=== PATIENT | female | born 1980 | race Caucasian/White ===

== ENCOUNTER 2017-10-20 18:27 | Emergency (ER) | payer BC ==
[~2017-10-20] VITALS: Ht 170.2 cm; Wt 80.4 kg
[2017-10-20] MEDS ORDERED: TETanus/Pertussis (Acell)/Diphther VAC/PF (Tdap-Adult) 0.5ml syringe IM ONE (20:40)
[2017-10-20] MEDS ORDERED: CYCL-1 PO (21:27)
[2017-10-20 21:33] VITALS: BP 135/82
== END 2017-10-20 21:35 | disposition home or self-care (01) ==
LOC: ER 18:28
DX: S01.01XA Laceration without foreign body of scalp, initial encounter (principal); Z98.890 Other specified postprocedural states; W01.0XXA Fall on same level from slipping, tripping and stumbling without subsequent striking against object, initial encounter; Y93.89 Activity, other specified; Y92.89 Other specified places as the place of occurrence of the external cause; Y99.8 Other external cause status
CPT/HCPCS: 70450; 72074; 72100; 90471; 90715; 99284